=== PATIENT | male | born 1990 | race Caucasian/White ===

== ENCOUNTER 2019-09-19 05:07 | Emergency (ER) | payer BC ==
[~2019-09-19] VITALS: Ht 167.6 cm; Wt 79.4 kg
[2019-09-19] MEDS ORDERED: CEPHALEXIN500 M1 PO (06:33)
== END 2019-09-19 06:55 | disposition home or self-care (01) ==
LOC: ED 05:07
DX: S61.412A Laceration without foreign body of left hand, initial encounter (principal); Z88.8 Allergy status to other drugs, medicaments and biological substances; W26.0XXA Contact with knife, initial encounter; Y93.89 Activity, other specified; Y92.89 Other specified places as the place of occurrence of the external cause; Y99.8 Other external cause status